=== PATIENT | male | born 1955 | race Caucasian/White ===

== ENCOUNTER → 2017-07-18 | Outpatient (RCR) | payer OTHER | LOC: OT 06-28 10:06 → PT 07-05 08:43 → OT 09:00 | PROVIDERS: ATTEND Orthopaedic Surgery | DX: M75.111 Incomplete rotator cuff tear or rupture of right shoulder, not specified as traumatic (principal); M75.41 Impingement syndrome of right shoulder; M25.511 Pain in right shoulder; M25.611 Stiffness of right shoulder, not elsewhere classified; M75.21 Bicipital tendinitis, right shoulder; M62.81 Muscle weakness (generalized); G56.02 Carpal tunnel syndrome, left upper limb; M25.532 Pain in left wrist; M25.432 Effusion, left wrist; R20.9 Unspecified disturbances of skin sensation; R53.1 Weakness ==

== ENCOUNTER 2017-07-20 08:13 | Outpatient (RCR) | payer OTHER | END 2017-08-18 | LOC: OT 08:13 | PROVIDERS: ATTEND Surgery Surgery of the Hand | DX: M75.111 Incomplete rotator cuff tear or rupture of right shoulder, not specified as traumatic (principal); M75.41 Impingement syndrome of right shoulder; M75.21 Bicipital tendinitis, right shoulder ==